=== PATIENT | male | born 1995 | race African-American/Black ===

== ENCOUNTER 2019-03-06 15:43 | Emergency (ER) | payer SELFPAY ==
[~2019-03-06] VITALS: Ht 177.8 cm; Wt 104.3 kg
[2019-03-06] MEDS ORDERED: LIDOCAINE HCL 1% 20 ML VIAL ONE (15:59)
[2019-03-06] MEDS ORDERED: LIDOCAINE HCL 1% 20 ML VIAL IJ ONE (16:00)
[2019-03-06] MEDS ORDERED: ACETAMINOPHEN ES 500 MG TABLET PO ONE (16:15)
[2019-03-06] MEDS ORDERED: ACETAMINOPHEN ES 500 MG TABLET ONE (16:22)
--- NOTE | 2019-03-06 16:23 | NUR ---
Patient discharged to home in stable conditon. Written and verbal after care instructions given. Patient verbalizes understanding of instructions. Stressed follow up.
== END 2019-03-06 16:24 | disposition home or self-care (01) ==
LOC: ER 15:43
DX: H66.41 Suppurative otitis media, unspecified, right ear (principal)
CPT/HCPCS: 10060; 99283; J3490; A4217; A4663; A9150

== ENCOUNTER 2019-03-07 13:45 | Emergency (ER) | payer SELFPAY ==
[~2019-03-07] VITALS: Ht 177.8 cm; Wt 104.3 kg
--- NOTE | 2019-03-07 14:03 | NUR ---
PATIENT WAS SEEN BY . I GAVE HIM A GOODrX CARD FOR DISCOUNT PRESCRIPTIONS.
--- NOTE | 2019-03-07 14:09 | NUR ---
DC AND FOLLOW UP INSTRUCTIONS GIVEN AND EXPLAINED TO PATIENT WHO STATES HE UNDERSTANDS ALL INSTRUCTIONS.
== END 2019-03-07 14:10 | disposition home or self-care (01) ==
LOC: ER 13:45
DX: H66.41 Suppurative otitis media, unspecified, right ear (principal)
CPT/HCPCS: A4663

== ENCOUNTER 2019-03-09 14:47 | Emergency (ER) | payer OTHER ==
[~2019-03-09] VITALS: Ht 177.8 cm; Wt 104.3 kg
--- NOTE | 2019-03-09 15:36 | NUR ---
Patient discharged to home in stable conditon. Written and verbal after care instructions given. Patient verbalizes understanding of instructions.
== END 2019-03-09 15:38 | disposition home or self-care (01) ==
LOC: ER 14:47
DX: H66.41 Suppurative otitis media, unspecified, right ear (principal)
CPT/HCPCS: A4663